=== PATIENT | female | born 1935 | race Caucasian/White ===

== ENCOUNTER → 2017-12-21 11:55 | Outpatient (CLI) | payer OTHER, SELFPAY ==
[2017-12-21 12:44] LABS: BUN Creatinine Ratio 21.7 (6-22); Blood Urea Nitrogen 13 mg/dL (7-17); Calcium 8.9 mg/dL (8.4-10.2); Carbon Dioxide 31 mmol/L (22-32); Chloride 102 mmol/L (98-107); Cholesterol 314 mg/dL (140-199); Estimated Glomerular Filt Rate > 60.0 mL/min (>60); Glucose 96 mg/dL (80-110); HDL Cholesterol 52 mg/dL (40-60); HEMOLYSIS 15 (0-50); LDL Cholesterol Calculated 224 mg/dL (<100); Sodium 141 mmol/L (137-145); Triglycerides 189 mg/dL (35-150)
[2017-12-21 15:11] LABS: Vitamin D 25 Hydroxy (D3) 44.2 ng/mL (30.0-100.0)
== END ==
PROVIDERS: Family Provider Internal Medicine; PCP Internal Medicine; Visit Provider Internal Medicine
DX: I10 Essential (primary) hypertension (principal); E78.2 Mixed hyperlipidemia; M85.80 Other specified disorders of bone density and structure, unspecified site
CPT/HCPCS: 36415; 80048; 80061; 82306

== ENCOUNTER → 2018-01-03 09:42 | Outpatient (CLI) | payer OTHER, SELFPAY ==
--- NOTE | 2018-01-03 | DI.RAD.S_ITS ---
This blank DEXA report has been sent in error by the PACS system. The correct and complete report will be forthcoming in 1-2 days. Thank you for your patience and understanding. Dictated by: Amber Bryan MD, PhD on 01/03/2018 at 11:01 Approved by: Amber Bryan MD, PhD on 01/03/2018 at 11:02
== END ==
PROVIDERS: Family Provider Internal Medicine; PCP Internal Medicine; Visit Provider Internal Medicine
DX: M85.852 Other specified disorders of bone density and structure, left thigh (principal); Z78.0 Asymptomatic menopausal state; Z87.891 Personal history of nicotine dependence
CPT/HCPCS: 77080

== ENCOUNTER → 2019-01-02 09:33 | Outpatient (CLI) | payer OTHER, SELFPAY ==
[2019-01-02 10:32] LABS: Alanine Aminotransferase 57 IU/L (9-52); Aspartate Aminotransferase 34 IU/L (14-36); BUN Creatinine Ratio 22.9 (6-22); Blood Urea Nitrogen 16 mg/dL (7-17); Calcium 9.4 mg/dL (8.4-10.2); Carbon Dioxide 31 mmol/L (22-32); Chloride 99 mmol/L (98-107); Cholesterol 224 mg/dL (140-199); Estimated Glomerular Filt Rate > 60.0 mL/min (>60); Glucose 104 mg/dL (80-110); HDL Cholesterol 54 mg/dL (40-60); HEMOLYSIS < 15 (0-50); LDL Cholesterol Calculated 123 mg/dL (<100); Potassium 4.3 mmol/L (3.4-5.1); Sodium 141 mmol/L (137-145); Triglycerides 233 mg/dL (35-150)
== END ==
PROVIDERS: PCP Internal Medicine; Visit Provider Internal Medicine
DX: I10 Essential (primary) hypertension (principal); E78.2 Mixed hyperlipidemia
CPT/HCPCS: 36415; 80048; 80061; 84450; 84460

== ENCOUNTER → 2019-08-14 13:10 | Outpatient (CLI) | payer MEDICARE, SELFPAY ==
[2019-08-14 14:32] LABS: Alanine Aminotransferase 66 IU/L (<35); Albumin 4.5 g/dL (3.5-5.0); Albumin Globulin Ratio 1.5 (1.0-2.8); Alkaline Phosphatase 100 U/L (38-126); Aspartate Aminotransferase 43 IU/L (14-36); Bilirubin Total 1.5 mg/dL (0.2-1.3); Blood Urea Nitrogen 14 mg/dL (7-17); Calcium 9.4 mg/dL (8.4-10.2); Carbon Dioxide 26 mmol/L (22-32); Chloride 103 mmol/L (98-107); Cholesterol 221 mg/dL (140-199); Estimated Glomerular Filt Rate > 60.0 mL/min (>60); Glucose 107 mg/dL (80-110); HDL Cholesterol 46 mg/dL (40-60); HEMOLYSIS < 15 (0-50); LDL Cholesterol Calculated 126 mg/dL (<100); Potassium 4.2 mmol/L (3.4-5.1); Sodium 140 mmol/L (137-145); Total Protein 7.5 g/dL (6.3-8.2); Triglycerides 244 mg/dL (35-150)
== END ==
PROVIDERS: PCP Internal Medicine; Referring Provider Internal Medicine; Visit Provider Internal Medicine
DX: I10 Essential (primary) hypertension (principal); E78.2 Mixed hyperlipidemia
CPT/HCPCS: 36415; 80053; 80061

== ENCOUNTER → 2019-11-17 11:08 | Outpatient (CLI) | payer MEDICARE, SELFPAY ==
[2019-11-17 12:06] LABS: Alanine Aminotransferase 49 IU/L (<35); Aspartate Aminotransferase 38 IU/L (14-36); Cholesterol 199 mg/dL (140-199); HDL Cholesterol 44 mg/dL (40-60); LDL Cholesterol Calculated 110 mg/dL (<100); Triglycerides 227 mg/dL (35-150)
== END ==
PROVIDERS: PCP Internal Medicine; Referring Provider Internal Medicine; Visit Provider Internal Medicine
DX: E78.2 Mixed hyperlipidemia (principal)
CPT/HCPCS: 36415; 80061; 84450; 84460

== ENCOUNTER → 2020-10-01 18:41 | Outpatient (ROUT) | payer OTHER, SELFPAY ==
[2020-10-01 19:02] LABS: Alanine Aminotransferase 43 IU/L (<35); Albumin 4.2 g/dL (3.5-5.0); Albumin Globulin Ratio 1.6 (1.0-2.8); Alkaline Phosphatase 113 U/L (38-126); Aspartate Aminotransferase 40 IU/L (14-36); BUN Creatinine Ratio 17.2 (6-22); Bilirubin Total 1.6 mg/dL (0.2-1.3); Blood Urea Nitrogen 11 mg/dL (7-17); Calcium 9.2 mg/dL (8.4-10.2); Carbon Dioxide 28 mmol/L (22-32); Chloride 105 mmol/L (98-107); Cholesterol 204 mg/dL (140-199); Estimated Glomerular Filt Rate > 60.0 mL/min (>60); Globulin 2.6 g/dL (1.7-4.1); Glucose 104 mg/dL (80-110); HDL Cholesterol 59 mg/dL (40-60); HEMOLYSIS 47 (0-50); LDL Cholesterol Calculated 98 mg/dL (<100); Potassium 4.4 mmol/L (3.4-5.1); Sodium 140 mmol/L (137-145); Total Protein 6.8 g/dL (6.3-8.2); Triglycerides 235 mg/dL (35-150)
== END ==
PROVIDERS: PCP Internal Medicine; Visit Provider Internal Medicine
DX: E78.2 Mixed hyperlipidemia (principal); I10 Essential (primary) hypertension
CPT/HCPCS: 80053; 80061

== ENCOUNTER → 2022-03-10 13:29 | Outpatient (CLI) | payer OTHER, SELFPAY ==
--- NOTE | 2022-03-10 | DI.US.S_ITS ---
LIMITED ULTRASOUND OF RIGHT BREAST: 03/10/2022 CLINICAL: Palpable right breast lump. Comparison is made to exams dated: 03/10/2022 mammogram, 08/30/2016 mammogram, 03/03/2016 ultrasound, and 03/03/2016 mammogram - [facility]. Color flow and real-time ultrasound of the right breast 6 o'clock, 9 o'clock, and retroareolar regions were performed. Maldonado scale images of the real-time examination were reviewed. There is a benign 0.2 cm simple cyst in the right breast at 6 o'clock in the retroareolar region. This simple cyst is anechoic. This correlates as palpated and with mammography findings. Color flow imaging demonstrates that there is no vascularity present. No mass in the 9:00 region at site of second palpable abnormality. IMPRESSION: BENIGN There is no sonographic evidence of malignancy. The 0.2 cm simple cyst in the right breast is benign. A 1 year screening mammogram is recommended. Exam findings were conveyed to the patient. This exam was interpreted at Station ID: [id number]. Electronically Signed By: Ady Frank M.D. [facility] [place]/:03/10/2022 15:16:53 letter sent: Normal Exam Ultrasound BI-RADS: 2 Benign
--- NOTE | 2022-03-10 | DI.MG.S_ITS ---
BILATERAL DIGITAL DIAGNOSTIC MAMMOGRAM 3D/2D: 03/10/2022 CLINICAL: Right breast palpable abnormality. Comparison is made to exams dated: 08/30/2016 mammogram, 01/01/2013 mammogram, and 02/23/2016 mammogram - [facility]. There are scattered areas of fibroglandular density in both breasts (category b / 25%-50% glandular tissue). There is an oval mass with a circumscribed margin in the right breast at 6 o'clock in the retroareolar region. This is not significantly changed and correlates as palpated. No other significant masses, calcifications, or other findings are seen in either breast. IMPRESSION: INCOMPLETE: NEEDS ADDITIONAL IMAGING EVALUATION The oval mass in the right breast is indeterminate. A targeted ultrasound is recommended and will immediately follow. This exam was interpreted at Station ID: [id number]. NOTE: For mammograms, a report in lay terms will be sent to the patient. Approximately 15% of breast malignancies will not be visualized mammographically. In the management of a palpable breast mass, a negative mammogram must not discourage biopsy of a clinically suspicious lesion. Electronically Signed By: Ady Frank M.D. [facility]/:03/10/2022 14:18:41 ACR BI-RADS Category 0: Incomplete [id number]
== END ==
PROVIDERS: PCP Internal Medicine; Referring Provider Internal Medicine; Visit Provider Internal Medicine
DX: R92.8 Other abnormal and inconclusive findings on diagnostic imaging of breast (principal); N63.41 Unspecified lump in right breast, subareolar; N60.01 Solitary cyst of right breast
CPT/HCPCS: 76642; 77066; G0279

== ENCOUNTER → 2023-11-01 12:47 | Outpatient (CLI) | payer MEDICARE, SELFPAY ==
--- NOTE | 2023-11-01 12:49 | DI.RAD.S_ITS ---
PROCEDURE: XR DEXA AXIAL SKELETON INDICATIONS: FOLLOW UP ON OSTEOPENIA COMPARISON: [facility], DURGA, XR DEXA AXIAL SKELETON, 01/03/2018, 10:18. FINDINGS: Lumbar Spine: Bone mineral density 1.083 g/cm2, T score 0.3, decreased by 4.8 % when compared to the prior exam although scan types are dissimilar. Left Hip: Bone mineral density 0.751 g/cm2, T score -1.6, increased by 2.3 % when compared to the prior exam although scan types are dissimilar. Left Femoral Neck: Bone mineral density 0.554 g/cm2, T score -2.7. Right Hip: Bone mineral density is 0.754 g/cm2, T score -1.5, decreased by 1.6 % when compared to the prior exam although scan types are dissimilar. Right Femoral Neck: Bone mineral density 0.660 g/cm2, T score -1.7. Fracture Risk Calculation (when applicable): FRAX score not reported due to osteoporosis. (T score greater or equal to -1.0 to: NORMAL) (T score from -1.1 to -2.4: OSTEOPENIA) (T score less than or equal to -2.5: OSTEOPOROSIS) IMPRESSION: By WHO criteria, patient has osteoporosis. Follow-up guidelines as follows: Osteoporosis: Consider a repeat DEXA and Vertebral Fracture Assessment (VFA) exam in 2 years or sooner if medically necessary, to reassess this patient's status. Osteopenia: Consider a repeat DEXA in 2-3 years to reassess this patient's status, or if there is a new clinical indication. Normal: Consider a repeat DEXA in 5 years or sooner, or if there is a new clinical indication. Approved by: Keron Coffey M.D. on 11/01/2023 at 21:53
== END ==
LOC: RAD 12:48
PROVIDERS: PCP Internal Medicine; Referring Provider Internal Medicine; Visit Provider Internal Medicine
DX: M81.0 Age-related osteoporosis without current pathological fracture (principal); Z78.0 Asymptomatic menopausal state
CPT/HCPCS: 77080